=== PATIENT | male | born 1965 | race Asian ===

== ENCOUNTER 2022-07-06 06:52 | Emergency (ER) | payer OTHER, SELFPAY ==
[2022-07-06 07:34] VITALS: BP 129/67; PULSE 94; RESP 14; TEMP 36.8; O2SAT 96; BMI 24.7
--- NOTE | 2022-07-06 08:26 | ED.MALEGU ---
HPI - Male Genitourinary General Chief complaint: Urogenital-Male Stated complaint: possible uti Time Seen by Provider: 07/06/22 07:21 Source: patient Mode of arrival: Ambulatory Limitations: no limitations History of Present Illness HPI Narrative: This is a 56-year-old male on oral medication for diabetes, dyslipidemia and hypertension. Patient presents with subjective fevers and chills, night sweats, generalized body aches and urinary symptoms started on the 03 of July, 4 days ago. Patient denies any sick contacts. Patient denies any other upper respiratory symptoms, no cold, cough or congestion. Patient states he has pain at the beginning of urination but denies any discharge, no frequency or sense of urgency, no testicular pain, he denies abdominal, back or flank pain. He denies chest pain or shortness of breath. Patient denies any prior surgeries. No known drug allergies. No tobacco, rare alcohol, no illicit. He receives his medical care through the [facility]. He is accompanied by his today. Related Data Home Medications Medication Instructions Recorded Confirmed aspirin 81 mg tablet,delayed 81 mg PO QDAY ##0 01/05/17 release atorvastatin 40 mg tablet (Lipitor) 40 mg PO QDAY ##0 01/05/17 glipizide 10 mg tablet 15 mg PO BID ##0 01/05/17 losartan 25 mg tablet 25 mg PO QDAY ##0 01/05/17 metformin 500 mg tablet,extended 500 mg PO QDAY ##0 01/05/17 release 24 hr (Glucophage XR) pioglitazone 45 mg tablet (Actos) 45 mg PO QDAY ##0 01/05/17 sitagliptin 100 mg tablet (Januvia) 100 mg PO QDAY ##0 01/05/17 Allergies Allergy/AdvReac Type Severity Reaction Status Date / Time No Known Drug Allergies Allergy Verified 07/06/22 07:38 Review of Systems Review of Systems ROS Unobtainable: All systems reviewed & are unremarkable except as noted in HPI and below Patient History Social History Smoking Status: Unknown if ever smoked Smoking Status: Unknown if ever smoked alcohol intake frequency: holidays/special occasions only Substance Use Type: does not use Exam Narrative Exam Narrative: GEN: well nourished, well appearing male, alert and oriented x 3, patient appears to be in mild distress. Patient feels warm to touch. HEENT: Atraumatic, pupils are equal round reactive to light, extraocular movements are intact, nares are clear HEART: Regular rate and rhythm without murmur, clicks, rubs. LUNGS:Lungs clear to auscultation, no wheezes, rales, crackles, chest moves symmetrically, no tachypnea accessory muscle use ABD:bowel sounds normal, soft, non-tender, no guarding, rebound, rigidity, no masses noted, no hepatosplenomegaly, nondistended. :No CVA tenderness MSCL: Non-tender, no muscle atrophy, muscles strength 5/5 upper and lower extremities, full range of motion, normal gait NEURO:CN 2-12 intact, sensation normal SKIN: No rash, erythema or other changes Initial Vital Signs Initial Vital Signs: Vital Signs Temperature 98.2 F 07/06/22 07:34 Pulse Rate 94 H 07/06/22 07:34 Respiratory Rate 14 07/06/22 07:34 Blood Pressure 129/67 07/06/22 07:34 Pulse Oximetry 96 07/06/22 07:34 Oxygen Delivery Method 07/06/22 07:34 Course Orders Ordered: ED Orders 07/06/22 07:47 UA Complete [Urinalysis and Microscopic] Stat 07/06/22 08:26 CBC Auto Diff [Complete Blood Count AUTO DIFF] Stat CMP [Comprehensive Metabolic Panel] Stat 07/06/22 08:44 COVID19 -Nasal RAPID/Pre-Proc Stat Vital Signs Vital signs: Vital Signs - 8 hr 07/06/22 07:34 Temperature 98.2 F Pulse Rate 94 H Respiratory Rate 14 Blood Pressure 129/67 Pulse Oximetry 96 Oxygen Delivery Method Room Air MDM - Male Genitourinary Lab Data Result diagrams: 07/06/22 09:06 07/06/22 09:06 Labs: Lab Results 07/06/22 07/06/22 07/06/22 Range/Units 07:47 07:47 08:44 WBC (4.5-11.0) X10^3/uL RBC (4.5-5.9) X10^6/uL Hgb (13.5-17.5) g/dL Hct (41-53) % MCV (80-100) fL MCH (26-34) PG MCHC (30-36) % RDW (11.6-14.8) % Plt Count (150-400) X10^3/uL Neut % (Auto) (50-75) % Lymph % (Auto) (25-40) % Davison % (Auto) (3-14) % Eos % (Auto) (2-4) % Baso % (Auto) (0-2) % Neut # (Auto) (9475-8842) /uL Lymph # (Auto) (2643-0842) /uL Davison # (Auto) (0-900) /uL Eos # (Auto) (0-450) /uL Baso # (Auto) (0-100) /uL Sodium (137-145) mmol/L Potassium (3.4-5.1) mmol/L Chloride (98-107) mmol/L Carbon Dioxide (22-32) mmol/L BUN (9-20) mg/dL Creatinine (0.66-1.25) mg/dL Estimated GFR (>60) mL/min BUN/Creatinine Ratio (6-22) Glucose (70-100) mg/dL Calcium (8.4-10.2) mg/dL Total Bilirubin (0.2-1.3) mg/dL AST (17-59) IU/L ALT (<50) IU/L Alkaline Phosphatase (38-126) U/L Total Protein (6.3-8.2) g/dL Albumin (3.5-5.0) g/dL Globulin (1.7-4.1) g/dL Albumin/Globulin Ratio (1.0-2.8) Urine Color Yellow Urine Appearance Clear Urine pH 5.0 (4.5-8.0) Ur Specific Jupiter <=1.005 (1.000-1.035) Urine Protein Negative (Negative) Urine Glucose (UA) 3+ H (Negative) g/dL Urine Ketones 2+ H (NEGATIVE) Urine Occult Blood 1+ H (Negative) Urine Nitrate Negative (Negative) Urine Bilirubin Negative (NEGATIVE) Urine Urobilinogen 0.2 (0.2) E.U./dL Ur Leukocyte Esterase Negative (NEGATIVE) Urine RBC None seen (0-5/HPF) Urine WBC None seen (0-5/HPF) Ur Squamous Epith Cells None seen (0-5/HPF) Urine Bacteria None seen (None) Ur Culture Indicated? Cult not indicated Ur Chlamydia DNA (PCR) Not detected SARS-CoV-2 (PCR) Negative (Negative) N gonorrhoeae DNA (PCR) Not detected 07/06/22 07/06/22 Range/Units 09:06 09:06 WBC 7.9 (4.5-11.0) X10^3/uL RBC 4.33 L (4.5-5.9) X10^6/uL Hgb 13.7 (13.5-17.5) g/dL Hct 39.7 L (41-53) % MCV 91.9 (80-100) fL MCH 31.6 (26-34) PG MCHC 34.4 (30-36) % RDW 14.2 (11.6-14.8) % Plt Count 166 (150-400) X10^3/uL Neut % (Auto) 81.4 H (50-75) % Lymph % (Auto) 10.1 L (25-40) % Davison % (Auto) 8.1 (3-14) % Eos % (Auto) 0.0 L (2-4) % Baso % (Auto) 0.4 (0-2) % Neut # (Auto) 6400 (4261-1115) /uL Lymph # (Auto) 800 L (3221-3585) /uL Davison # (Auto) 600 (0-900) /uL Eos # (Auto) 0 (0-450) /uL Baso # (Auto) 0 (0-100) /uL Sodium 134 L (137-145) mmol/L Potassium 3.7 (3.4-5.1) mmol/L Chloride 99 (98-107) mmol/L Carbon Dioxide 27 (22-32) mmol/L BUN 20 (9-20) mg/dL Creatinine 0.90 (0.66-1.25) mg/dL Estimated GFR > 60 (>60) mL/min BUN/Creatinine Ratio 22.2 H (6-22) Glucose 235 H (70-100) mg/dL Calcium 9.0 (8.4-10.2) mg/dL Total Bilirubin 0.6 (0.2-1.3) mg/dL AST 26 (17-59) IU/L ALT 20 (<50) IU/L Alkaline Phosphatase 62 (38-126) U/L Total Protein 6.9 (6.3-8.2) g/dL Albumin 4.0 (3.5-5.0) g/dL Globulin 2.9 (1.7-4.1) g/dL Albumin/Globulin Ratio 1.4 (1.0-2.8) Urine Color Urine Appearance Urine pH (4.5-8.0) Ur Specific Jupiter (1.000-1.035) Urine Protein (Negative) Urine Glucose (UA) (Negative) g/dL Urine Ketones (NEGATIVE) Urine Occult Blood (Negative) Urine Nitrate (Negative) Urine Bilirubin (NEGATIVE) Urine Urobilinogen (0.2) E.U./dL Ur Leukocyte Esterase (NEGATIVE) Urine RBC (0-5/HPF) Urine WBC (0-5/HPF) Ur Squamous Epith Cells (0-5/HPF) Urine Bacteria (None) Ur Culture Indicated? Ur Chlamydia DNA (PCR) SARS-CoV-2 (PCR) (Negative) N gonorrhoeae DNA (PCR) Urine Dip Bedside Urine Glucose 1000 mg/dl Bedside Urine Bilirubin - Negative Bedside Urine Ketone +++ 80 Urine Specific Jupiter 1.015 Bedside Urine Occult Blood +/- Bedside Urine pH 6.0 Bedside Urine Protein - Negative Bedside Urine Urobilinogen - Negative Bedside Urine Nitrite - Negative Bedside Urine Leukocytes - Negative Esterase MDM Narrative Medical decision making narrative: This is a 48-year-old male with urinary symptoms, but also possibly COVID symptoms or other cause. Urine was obtained, COVID swab and CBC CMP. Discharge Plan Departure Patient Disposition: Home Clinical Impression: Hyperglycemia Instructions: DI for Hyperglycemia -- Adult Activity Restrictions/Additional Instructions: Please follow-up with your physician if you are not improving over the next several days. Your glucose is elevated today but your labs do not reflect any other major changes. Your urine does not show any clear signs of infection but I do recommend that you continue to hydrate. Your urine was sent for culture to evaluate for infection this can take 2 or 3 days to result and a secondary urine test which will take several hours. If this is positive I will call to follow up with you and start an antibiotic. COVID swab today is negative. You may take Tylenol and/or ibuprofen for fevers. Please return for rapidly worsening symptoms, persistent vomiting, black or bloody stools, new chest pain or shortness of breath or other new or concerning symptoms. Prescriptions: No Action atorvastatin [Lipitor] 40 MG tablet 40 mg PO QDAY Qty: 0 pioglitazone [Actos] 45 MG tablet 45 mg PO QDAY Qty: 0 aspirin 81 MG tablet,delayed release (DR/EC) 81 mg PO QDAY Qty: 0 losartan 25 MG tablet 25 mg PO QDAY Qty: 0 glipizide 10 MG tablet 15 mg PO BID Qty: 0 metformin [Glucophage XR] 500 MG tablet extended release 24 hr 500 mg PO QDAY Qty: 0 sitagliptin [Januvia] 100 MG tablet 100 mg PO QDAY Qty: 0 Referrals: Harris Ram MD [Primary Care Provider] - Visit Report Forms: Patient Portal/API
[2022-07-06 08:41] LABS: Appearance Urine UA CLEAR; Bilirubin Urine UA NEGATIVE (NEGATIVE); Color Urine UA YELLOW; Glucose Urine UA 3+ g/dL (Negative); Ketones Urine UA 2+ (NEGATIVE); Leukocyte Esterase Urine UA NEGATIVE (NEGATIVE); Nitrite Urine UA NEGATIVE (Negative); Occult Blood Urine UA 1+ (Negative); Protein Urine UA NEGATIVE (Negative); Specific Gravity Urine UA <=1.005 (1.000-1.035); Urobilinogen Urine UA 0.2 E.U./dL (0.2)
[2022-07-06 08:52] LABS: Bacteria Urine None Seen; Culture Indicated Urine Cult Not Indicated; RBC Urine None Seen (0-5/HPF); Squamous Epithelial Cell Urine None Seen (0-5/HPF); WBC Urine None Seen (0-5/HPF)
[2022-07-06 09:14] LABS: COVID19 -Nasal RAPID Negative (Negative)
[2022-07-06 09:51] LABS: Add Manual Diff / Slide Review NO; Basophils Absolute Auto 0 /uL (0-100); Basophils Percent Auto 0.4 % (0-2); Eosinophils Absolute Auto 0 /uL (0-450); Hematocrit 39.7 % (41-53); Hemoglobin 13.7 g/dL (13.5-17.5); Lymphocytes Absolute Auto 800 /uL (1100-4500); Lymphocytes Percent Auto 10.1 % (25-40); Mean Corpuscular HGB Conc 34.4 % (30-36); Mean Corpuscular Hemoglobin 31.6 PG (26-34); Mean Corpuscular Volume 91.9 fL (80-100); Monocytes Absolute Auto 600 /uL (0-900); Monocytes Percent Auto 8.1 % (3-14); Neutrophils Absolute Auto 6400 /uL (1500-7000); Neutrophils Percent Auto 81.4 % (50-75); Platelet Count 166 X10^3/uL (150-400); Red Blood Cell Count 4.33 X10^6/uL (4.5-5.9); Red Cell Distribution Width 14.2 % (11.6-14.8); White Blood Cell Count 7.9 X10^3/uL (4.5-11.0)
[2022-07-06 10:03] LABS: Alanine Aminotransferase 20 IU/L (<50); Albumin Globulin Ratio 1.4 (1.0-2.8); Alkaline Phosphatase 62 U/L (38-126); Aspartate Aminotransferase 26 IU/L (17-59); BUN Creatinine Ratio 22.2 (6-22); Bilirubin Total 0.6 mg/dL (0.2-1.3); Blood Urea Nitrogen 20 mg/dL (9-20); Carbon Dioxide 27 mmol/L (22-32); Chloride 99 mmol/L (98-107); Estimated Glomerular Filt Rate > 60 mL/min (>60); Globulin 2.9 g/dL (1.7-4.1); Glucose 235 mg/dL (70-100); HEMOLYSIS < 15 (0-50); Potassium 3.7 mmol/L (3.4-5.1); Sodium 134 mmol/L (137-145); Total Protein 6.9 g/dL (6.3-8.2)
[2022-07-06 10:31] VITALS: BP 122/74; PULSE 70; RESP 18; O2SAT 98
[2022-07-06 16:49] LABS: Urine N gonorrhoeae NOT DETECTED
[2022-07-06 16:50] LABS: Urine Chlamydia NOT DETECTED
== END 2022-07-06 10:32 | disposition home or self-care (01) ==
PROVIDERS: Emergency Provider Emergency Medicine; Family Provider Family Medicine; PCP Family Medicine
DX: R73.9 Hyperglycemia, unspecified (principal); Z20.822 Contact with and (suspected) exposure to COVID-19
CPT/HCPCS: 36415; 80053; 81001; 81003; 85025; 87086; 87491; 87591; 87635; 99282; 99283; C9803

== ENCOUNTER → 2023-01-20 12:41 | Outpatient (CLI) | payer OTHER, SELFPAY ==
--- NOTE | 2023-01-20 | DI.RAD.S_ITS ---
PROCEDURE: FL BARIUM SWALLOW W SPEECH INDICATIONS: Dysphagia, unspecified COMPARISON: None. TECHNIQUE: Examination was conducted in conjunction with speech pathology per standard protocol. In the lateral projection, filming was performed of the patient swallowing. AP projection filming may also be performed with patient swallowing. COMPARISON: FINDINGS: Function: Poor containing with the oral phase. The subsequent oral propulsive phase, pharyngeal phase, and esophageal phase of swallowing also appear normal with all proffered substances. No laryngotracheal penetration or aspiration. No pathologic vallecular pooling. Morphology: No cricopharyngeal bar is identified. No cervical esophageal webs. No Zenker's diverticulum. No strictures. No significant delay in the passage of the barium tablet. IMPRESSION: No aspiration. Please see separately dictated speech pathologist's report. Dictated by: Juan Carlos Fernandez M.D. on 01/20/2023 at 15:37 Approved by: Juan Carlos Fernandez M.D. on 01/20/2023 at 15:40
--- NOTE | 2023-01-20 16:10 | ST.SWALLOW ---
Visit Care Team Role Provider Type Harris Ram MD Family Provider Non-Staff Primary Care Provider Specialty: Family Practice Address: [address] [place] [address], [id number] Email: Orlando Rodriguez DO Attending Provider Non-Staff Referring Provider Specialty: [facility][1] Address: [address] [place] [address], [id number] Email: Modified Barium Swallow Study [employer] Modified Barium Swallow Study Start: 01/20/23 15:12 Freq: Status: Active Protocol: Document 01/20/23 15:19 LNK (Rec: 01/20/23 16:10 LNK [id number]) Modified Barium Swallow Study Total Time Visit Start Time 13:30 Visit Stop Time 14:10 Total Visit Minutes 40 Referral Referring Physician Orlando Rodriguez Reason for Referral Dysphagia Setting Setting Outpatient Care Patient Information Identification Type Name,Date of Patient History Pt was seen for a Modified barium Swallow Study at the referral of Orlando Rodriguez. According to the pt, he has been having difficulty swallowing foods such as rice, meats and dry foods for about 4+ months. He feels they get stuck in his throat ( pointing to laryngeal area). Pt reports his difficulty is getting foods into his esophagus. Once in the esophagus, he reports there is no problem. He noted that his does not happen with liquids. Pt stated he does not choke when he swallows. In addition, pt reported that he frequently bites his cheeks when he chews. Subjective Observations Pt was seated in the fluoroscopy chair with directions and procedures described. Pt indicated he understood and was agreeable. He did note that he might gag or vomit, so an emisis bag was provided. Patient Positioning Position View Lat-A/P Imaging Lateral View Textures Administered Trials Presented Thin Liquid via Spoon,Thin Liquid via Cup,Pudding Thick Liquid via Spoon,Regular Textures,Barium Tablet Oral Phase Source: MBSIMP (TM) (C) Bolus Specific Scoring Grid Lip Closure No Impairment (WNL) Tongue Control During Bolus Hold No Impairment (WNL) Bolus Prep/Mastication No Impairment (WNL) Bolus Transport/Lingual Motion No Impairment (WNL) A/P Lingual Propulsion Delay No Oral Residue Minimal Impairment Residue Clearing WFL Nasal Regurgitation No Additional Oral Phase Observations OME and DKS were both observed to be WNL. Oral phase of the swallow was noted to demonstrate good mastication. Pt did not report biting his cheeks with the cookie trial. No oral residue was observed. Barium coating was observed along the tongue body as expected. Pharyngeal Phase Source: MBSIMP (TM) (C) Bolus Specific Scoring Grid Delayed Initiation of Pharyngeal Swallow No Soft Palate Elevation No Impairment (WNL) Tongue Base Strength/Range of Motion WFL Residue Along the Tongue Base Yes: A column od contrast was present above the UES across all trials Clearance of Residue Along Tongue Base Moderate Impairment Laryngeal Elevation WFL Anterior Hyoid Movement WFL Epiglottic Range of Motion WFL Vallecular Residue Yes Clearance of Vallecular Residue Moderate Impairment Laryngeal Vestibular Closure WFL Pharyngeal Stripping Wave WFL Pharyngeal Contraction WFL Posterior Pharyngeal Wall Residue No Upper Esophageal Sphincter Opening Moderate Impairment Residue in the Pyriform Sinuses Yes Clearance of Residue in the Pyriform Moderate Impairment Sinuses Esophageal Clearance Upright Position WFL Pharyngoesophageal Backflow Observed No Additional Pharyngeal Phase Observations Tongue base, hyolaryngeal movement and epiglottal inversion were observed to be WFL. Laryngeal protection was also noted to be WFL. Across all trials a column of contrast remained within the pharynx from the valeculla to the UES. More than one swallow was needed in order to clear the contrast. The UES appeared to be mildly restricted in extension and duration of opening, resulting in residual contrast. Contributing to the column of contrast, pooling was observed in the valeculla, base of tongue and pyriform sinuses. No laryngeal penetration or aspiration were observed. Pt did gag several times and needed to spit out the pudding thick liquids and oral residue several times as well. from C4-C6, osteophytes were noted, which altered the shape of the pharynx into a wavy shape. The osteophytes did not appear to interfere with bolus flow. A/P View Textures Administered Trials Presented Barium Tablet A/P View Observations Pharyngeal Contraction WFL Vocal Fold Function Good Residue Observed Valleculae Right,Valleculae Left,Pyriform Sinus Right, Pyriform Sinus Left Esophageal Function WFL Esophageal Clearance Upright Position WFL Esophageal Observations Esophageal Function Once swallowed, all trials cleared the esophagus in a timely manner. Clinical Impressions Dysphagia Type pharyngeal phase (mild) Findings Pt presented with difficulty clearing contrast from his pharynx resulting in significant pooling. This appeared to trigger a gag reflex with a need to empty his mouth or spit out residual . He described swallowing as needing to breath in deeply with his nose and push down when he swallows. He reported that he has an appointment with GI in early January for further assessment. Patient Appropriate for Therapy Depending on the GI eval results Recommendations Diet Liquids Order Thin Diet Order Regular Medication Recommendation As Tolerated Aspiration Precautions Recommended Precautions Upright at 90 Degrees Treatment Plan Additional Therapy Recommendations dependent upon GI results Recommended Referrals Primary Care Physician,GI Consult Compensatory Strategies Recommendations Sitting Upright (90 deg)
== END ==
PROVIDERS: Family Provider Family Medicine; PCP Family Medicine; Referring Provider Student in an Organized Health Care Education/Training Program; Visit Provider Student in an Organized Health Care Education/Training Program
DX: R13.10 Dysphagia, unspecified (principal); R63.4 Abnormal weight loss; E11.9 Type 2 diabetes mellitus without complications
CPT/HCPCS: 74230; 92611

== ENCOUNTER 2024-11-08 08:42 | Emergency (ER) | payer OTHER, SELFPAY ==
[2024-11-08 08:47] VITALS: PULSE 108; O2SAT 98
[2024-11-08 08:52] VITALS: BP 131/65; PULSE 107; RESP 18; TEMP 37.3; O2SAT 98; BMI 22.6
[2024-11-08 09:00] VITALS: BP 125/61; PULSE 109; O2SAT 99
--- NOTE | 2024-11-08 09:06 | DI.RAD.S_ITS ---
PROCEDURE: XR CHEST 1V INDICATIONS: evalfor PNA TECHNIQUE: One view of the chest was acquired. COMPARISON: None. FINDINGS: Surgical changes and devices: None. Lungs and pleura: Lungs are clear. No pleural effusions or pneumothorax. Mediastinum: Mediastinal contours appear normal. Heart size is normal. Bones and chest wall: No suspicious bony lesions. Overlying soft tissues appear unremarkable. IMPRESSION: No acute cardiopulmonary abnormality is seen. Dictated by: Richmond Cleveland M.D. on 11/08/2024 at 9:45 Approved by: Richmond Cleveland M.D. on 11/08/2024 at 9:45
--- NOTE | 2024-11-08 09:06 | ED.GENADULT ---
HPI - General Adult General Chief complaint: Upper Respiratory Symptoms Stated complaint: back pain,chills, upper resp symptoms Time Seen by Provider: 11/08/24 08:51 Source: patient Mode of arrival: Ambulatory History of Present Illness HPI narrative: Patient was a 59-year-old male. [id number] diabetic who is here for evaluation of 3 days of chills, sore throat, sinus congestion, shortness of breath and back pain with coughing or sneezing. No chest pain. No abdominal pain. No nausea vomiting. Patient's had very similar symptoms a couple days ago and the patient's daughter had similar symptoms a couple days prior to that. Has been taking Tylenol for his symptoms at home. Related Data Home Medications Medication Instructions Recorded Confirmed aspirin 81 mg tablet,delayed 81 mg PO QDAY ##0 01/05/17 release atorvastatin 40 mg tablet (Lipitor) 40 mg PO QDAY ##0 01/05/17 glipizide 10 mg tablet 15 mg PO BID ##0 01/05/17 losartan 25 mg tablet 25 mg PO QDAY ##0 01/05/17 metformin 500 mg tablet,extended 500 mg PO QDAY ##0 01/05/17 release 24 hr (Glucophage XR) pioglitazone 45 mg tablet (Actos) 45 mg PO QDAY ##0 01/05/17 sitagliptin phosphate 100 mg 100 mg PO QDAY ##0 01/05/17 tablet (Januvia) Allergies Allergy/AdvReac Type Severity Reaction Status Date / Time No Known Drug Allergies Allergy Verified 07/06/22 07:38 Review of Systems Review of Systems Narrative: See HPI Patient History Social History Smoking Status: Unknown if ever smoked Smoking Status: Unknown if ever smoked alcohol intake frequency: holidays/special occasions only Exam Initial Vital Signs Initial Vital Signs: Vital Signs Pulse Rate 108 H 11/08/24 08:47 Pulse Oximetry 98 11/08/24 08:47 Const General: cooperative, comfortable and No ill appearing HENMT Head: normal to inspection and normocephalic Resp Effort & Inspection: normal respiratory effort Auscultation: clear to auscultation bilaterally Cardio Rate: regular rate Rhythm: regular rhythm Back/Spine/Pelvis Thoracic/Lumbar Spine: paraspinal tenderness (Thoracic region) and No lumbar spinal tenderness Neuro General: patient alert, patient awake and moves all extremities Extrem General: capillary refill normal Course Orders Ordered: ED Orders 11/08/24 08:45 Covid-19 + FLU A/B + RSV - PCR Stat 11/08/24 09:06 XR chest 1V Stat Discontinued Medications Ibuprofen (Ibuprofen 400 Mg Tablet) 800 mg PO NOW ONE Stop: 11/08/24 09:08 Last Admin: 11/08/24 09:32 Dose: 800 mg Documented By: RB Vital Signs Vital signs: Vital Signs - 8 hr 11/08/24 08:47 11/08/24 08:52 11/08/24 09:00 Temperature 99.2 F Pulse Rate 108 H 107 H Respiratory Rate 18 Blood Pressure 131/65 125/61 Pulse Oximetry 98 98 Oxygen Delivery Method Room Air 11/08/24 09:00 Temperature Pulse Rate 109 H Respiratory Rate Blood Pressure Pulse Oximetry 99 Oxygen Delivery Method Medical Decision Making Lab Data Labs: Lab Results 11/08/24 Range/Units 08:45 SARS-CoV-2 (PCR) Positive H (Negative) Influenza A (RT-PCR) Flu a negative (NEGATIVE) Influenza B (RT-PCR) Flu b negative (NEGATIVE) RSV (PCR) Negative (Negative) Imaging Data Chest x-ray: Radiologist's Impression: PROCEDURE: XR CHEST 1V INDICATIONS: evalfor PNA TECHNIQUE: One view of the chest was acquired. COMPARISON: None. FINDINGS: Surgical changes and devices: None. Lungs and pleura: Lungs are clear. No pleural effusions or pneumothorax. Mediastinum: Mediastinal contours appear normal. Heart size is normal. Bones and chest wall: No suspicious bony lesions. Overlying soft tissues appear unremarkable. IMPRESSION: No acute cardiopulmonary abnormality is seen. [facility] Narrative Medical decision making narrative: Chest x-ray does not show signs of pneumonia. He was positive for COVID-19 which does explain his presenting symptoms today. No respiratory distress. Not hypoxic. No indication for antibiotics. I discussed the findings with him. We discussed the expected course of the next couple days. He was given return precautions and follow-up instructions. He expressed understanding and agreement with the plan. Discharge Plan Departure Patient Disposition: Home Clinical Impression: COVID-19 Instructions: DI for COVID-19 (Suspected or Confirmed ) Activity Restrictions/Additional Instructions: Continue to take all of your medications as directed. You can take Tylenol and or ibuprofen for any fevers or body aches. Return to the emergency department for new or worsening symptoms. Prescriptions: No Action atorvastatin [Lipitor] 40 MG tablet 40 mg PO QDAY Qty: 0 pioglitazone [Actos] 45 MG tablet 45 mg PO QDAY Qty: 0 aspirin 81 MG tablet,delayed release (DR/EC) 81 mg PO QDAY Qty: 0 losartan 25 MG tablet 25 mg PO QDAY Qty: 0 glipizide 10 MG tablet 15 mg PO BID Qty: 0 metformin [Glucophage XR] 500 MG tablet extended release 24 hr 500 mg PO QDAY Qty: 0 sitagliptin phosphate [Januvia] 100 MG tablet 100 mg PO QDAY Qty: 0 Referrals: Harris Ram MD [Primary Care Provider] - Stand Alone Forms: Patient Portal/API/Survey, Work Release Note
[2024-11-08 09:30] VITALS: BP 108/62; PULSE 97; O2SAT 98
[2024-11-08] MEDS: IBUPROFEN 400 MG TABLET 800 MG PO (09:32)
[2024-11-08 10:00] VITALS: BP 118/63; PULSE 94; O2SAT 97
[2024-11-08 10:11] LABS: Influenza A - CEPHEID Flu A NEGATIVE (NEGATIVE); Influenza B - CEPHEID Flu B NEGATIVE (NEGATIVE); Respiratory Syncytial Virus Negative (Negative)
[2024-11-08 10:13] LABS: COVID-19 CEPHEID 4-PLEX PCR POSITIVE (Negative)
== END 2024-11-08 10:31 | disposition home or self-care (01) ==
PROVIDERS: Emergency Provider Emergency Medicine; Family Provider Family Medicine; PCP Family Medicine
DX: U07.1 COVID-19 (principal)
CPT/HCPCS: 0241U; 71045; 99283